=== PATIENT | female | born 1945 | race Caucasian/White ===

== ENCOUNTER 2019-07-20 10:19 | Outpatient (CLI) | payer MEDICARE, OTHER ==
--- NOTE | 2019-07-28 13:08 | MMO ---
Bilateral MAMMO Bilat Screen [facility]. CLINICAL HISTORY: Patient is 73 years old and is seen for screening. The patient has no family history of breast cancer. The patient has no personal history of cancer. VIEWS: The views performed were: bilateral craniocaudal with tomosynthesis and bilateral mediolateral oblique with tomosynthesis. FILMS COMPARED: The present examination has been compared to prior imaging studies performed at [facility] on 06/06/2016, 07/14/2017 and 07/15/2018. This study has been interpreted with the assistance of computer-aided detection. MAMMOGRAM FINDINGS: There are scattered fibroglandular densities. There are stable benign appearing calcifications seen in both breasts. There are no suspicious masses, suspicious calcifications, or new areas of architectural distortion. IMPRESSION: THERE IS NO MAMMOGRAPHIC EVIDENCE OF MALIGNANCY. A ROUTINE FOLLOW-UP MAMMOGRAM IN 1 YEAR IS RECOMMENDED. THE RESULTS OF THIS EXAM WERE SENT TO THE PATIENT. ACR BI-RADS Category 2 - Benign finding MAMMOGRAPHY NOTE: 1. A negative mammogram report should not delay a biopsy if a dominant of clinically suspicious mass is present. 2. Approximately 10% to 15% of breast cancers are not detected by mammography. 3. Adenosis and dense breasts may obscure an underlying neoplasm. Reported by: VENU COY MD Electonically Signed: [id number]
== END 2019-07-20 10:20 | disposition home or self-care (01) ==
LOC: BICMAMMO 10:19
PROVIDERS: ATTEND Obstetrics & Gynecology
DX: Z12.31 Encounter for screening mammogram for malignant neoplasm of breast (principal)
CPT/HCPCS: 77063; 77067

== ENCOUNTER 2020-09-05 11:06 | Outpatient (CLI) | payer MEDICARE ==
--- NOTE | 2020-09-05 11:42 | MMO ---
Bilateral MAMMO Bilat Screen [facility]. CLINICAL HISTORY: Patient is 74 years old and is seen for screening. The patient has no family history of breast cancer. The patient has no personal history of cancer. VIEWS: The views performed were: bilateral craniocaudal with tomosynthesis and bilateral mediolateral oblique with tomosynthesis. FILMS COMPARED: The present examination has been compared to prior imaging studies performed at [facility] on 07/20/2019, and at [facility] on 06/06/2016, 07/14/2017 and 07/15/2018. This study has been interpreted with the assistance of computer-aided detection. MAMMOGRAM FINDINGS: There are scattered fibroglandular densities. Benign calcifications are noted bilaterally. There are no suspicious masses, suspicious calcifications, or new areas of architectural distortion. IMPRESSION: THERE IS NO MAMMOGRAPHIC EVIDENCE OF MALIGNANCY. A ROUTINE FOLLOW-UP MAMMOGRAM IN 1 YEAR IS RECOMMENDED. THE RESULTS OF THIS EXAM WERE SENT TO THE PATIENT. ACR BI-RADS Category 2 - Benign finding MAMMOGRAPHY NOTE: 1. A negative mammogram report should not delay a biopsy if a dominant of clinically suspicious mass is present. 2. Approximately 10% to 15% of breast cancers are not detected by mammography. 3. Adenosis and dense breasts may obscure an underlying neoplasm. Reported by: ALHAJI MOONEY MD Electonically Signed: [id number]
== END 2020-09-05 11:07 | disposition home or self-care (01) ==
LOC: BICMAMMO 11:06
PROVIDERS: ATTEND Obstetrics & Gynecology
DX: Z12.31 Encounter for screening mammogram for malignant neoplasm of breast (principal)
CPT/HCPCS: 77063; 77067

== ENCOUNTER 2021-09-10 09:37 | Outpatient (CLI) | payer MEDICARE | END 2021-09-10 09:38 | disposition home or self-care (01) | LOC: BICMAMMO 09:37 | PROVIDERS: ATTEND Obstetrics & Gynecology | DX: Z12.31 Encounter for screening mammogram for malignant neoplasm of breast (principal) | CPT/HCPCS: 77063; 77067 ==

== ENCOUNTER 2021-10-09 10:10 | Outpatient (CLI) | payer MEDICARE | END 2021-10-09 10:11 | disposition home or self-care (01) | LOC: LABBT 10:10 | PROVIDERS: ATTEND Orthopaedic Surgery | DX: Z01.818 Encounter for other preprocedural examination (principal); M17.12 Unilateral primary osteoarthritis, left knee | CPT/HCPCS: 71046; 93005; 93010 ==

== ENCOUNTER 2021-10-14 05:49 | Observation (INO) | payer MEDICARE ==
[2021-10-08 13:45] VITALS: BMI 31.1
[2021-10-09 11:56] LABS: #Eosinphils 0.1 10x3/uL (0.0-0.5); #Monocytes 0.5 10x3/uL (0.0-1.1); #Neutrophils 3.4 10x3/uL (1.5-8.4); %Basophils 0.5 % (0.0-2.0); %Eosinophils 2.1 % (0.0-6.0); %Monocytes 7.8 % (0.0-10.0); %Neutrophils 59.3 % (40.0-75.0); Hemoglobin 13.9 g/dL (12.0-15.5); Mean Corpuscular HGB CONC 31.6 g/dL (32.0-36.0); Mean Corpuscular Hemoglobin 28.7 pg (27.0-33.0); Mean Corpuscular Volume 90.9 fl (81.6-98.3); Mean Platelet Volume 10.6 fl (7.4-10.4); Platelet Count 246 10x3/uL (150-450); RBC Distribution Width 13.5 % (11.5-14.5); Red Blood Cell (RBC) Count 4.84 10x6/uL (3.90-5.03); White Blood Cell (WBC) Count 5.8 10x3/uL (3.5-10.5)
[2021-10-09 12:08] LABS: Bilirubin Neg (Negative); Blood, Urine Negative (Negative); Clarity Clear (Clear); Glucose, Urine (Dipstick) Normal (Negative); Ketone, Urine Negative (Negative); Leukocyte 100 (Negative); Nitrite Negative (Negative); Protein, Urine (Dipstick) Negative (Neg-Trace); Urobilinogen Normal mg/dL (Less than 2)
[2021-10-09 12:09] LABS: Anion Gap 14 mmol/L (10-20); BUN (Urea Nitrogen) 21 mg/dL (9.8-20.1); Calc. Creatinine Clearance 0 mL/min (70-130); Calcium 9.8 mg/dL (7.8-10.44); Carbon Dioxide 27 mmol/L (23-31); Chloride 105 mmol/L (98-107); Glucose 90 mg/dL (83-110); Potassium 4.7 mmol/L (3.5-5.1); Sodium 141 mmol/L (136-145)
[2021-10-09 12:30] LABS: Prothrombin Time 10.6 sec (9.5-12.1)
[2021-10-09 21:33] LABS: SARS-CoV-2 PCR by NAA Not Detected (NotDetected)
[2021-10-14] MEDS ORDERED: Vancomycin 1 GM/200 ML BAG ONE (06:06)
[2021-10-14] MEDS ORDERED: Tranexamic Acid 1,000 MG/10 ML VIAL ONE ×2 (06:06→09:40)
[2021-10-14] MEDS ORDERED: Sodium Chloride 0.9% 100 ML ONE (06:07)
[2021-10-14] MEDS ORDERED: Lidocaine 1% (PF) 30 ML VIAL ONE (06:25)
[2021-10-14] MEDS ORDERED: Fentanyl 100 MCG/2 ML VIAL ONE (06:25)
[2021-10-14] MEDS ORDERED: Midazolam HCl 2 mg/2 ml Vial ONE (06:25)
[2021-10-14] MEDS ORDERED: Scopolamine 1.5 mg/72 hour Patch ONE (06:34)
[2021-10-14] MEDS ORDERED: Lidocaine 1% PF 5 ML VIAL ONE (06:50)
[2021-10-14] MEDS ORDERED: Ondansetron PF 4 MG/2 ML Vial ONE (06:50)
[2021-10-14] MEDS ORDERED: ePHEDrine 50 MG/ML VIAL ONE (06:50)
[2021-10-14] MEDS ORDERED: Ketorolac Tromethamine 30 MG/ML VIAL ONE ×2 (06:50→14:41)
[2021-10-14] MEDS ORDERED: Dexamethasone 20 MG/5 ML VIAL ONE (06:50)
[2021-10-14] MEDS ORDERED: PROPOFOL 200 MG/20 ML VIAL ONE (06:50)
[2021-10-14] MEDS ORDERED: Bupivacaine HCl 0.5%/Epinephrine 1:200,000/PF 30 ml Vial ONE (06:50)
[2021-10-14] MEDS ORDERED: Clindamycin/D5W 600 mg/50 ml Premix Bag ONE (07:16)
[2021-10-14] MEDS ORDERED: Zolpidem Tartrate 5 MG TAB PO PRN (07:30)
[2021-10-14] MEDS ORDERED: Ondansetron PF 4 MG/2 ML Vial IVP PRN ×2 (07:30→07:36)
[2021-10-14] MEDS ORDERED: traMADol HCl 50 MG TAB PO PRN ×3 (07:30→07:36)
[2021-10-14] MEDS ORDERED: HYDROcodone/Acetaminophen 10/325 mg Tablet PO PRN ×3 (07:30→07:36)
[2021-10-14] MEDS ORDERED: Promethazine HCl 25 MG/ML VIAL IM PRN ×3 (07:30→12:09)
[2021-10-14] MEDS ORDERED: Fentanyl 100 MCG/2 ML VIAL SLOW IVP PRN ×2 (07:30→07:36)
[2021-10-14] MEDS ORDERED: Ropivacaine 0.2% 550 ML 550 ML NERVE BLCK SCH (07:30)
[2021-10-14] MEDS ORDERED: Dexmedetomidine 200 MCG/2 ML VIAL ONE (07:35)
[2021-10-14] MEDS ORDERED: Acetaminophen 325 MG TAB PO PRN (07:36)
[2021-10-14] MEDS ORDERED: diphenhydrAMINE 25 MG CAP PO PRN (07:36)
[2021-10-14] MEDS ORDERED: Tranexamic Acid 1,000 MG in Sodium Chloride 0.9% 100 ML IVPB SCH (07:45)
[2021-10-14] MEDS ORDERED: Bupivacaine PF 0.5% 30 ML VIAL ONE (08:06)
[2021-10-14] MEDS ORDERED: Acetaminophen 500 MG TAB ONE (10:55)
[2021-10-14] MEDS ORDERED: Promethazine HCl 25 MG/ML VIAL ONE (11:05)
[2021-10-14] MEDS ORDERED: Morphine 4 MG/ML VIAL ONE (11:05)
[2021-10-14] MEDS ORDERED: Ondansetron HCl/PF 4 MG/2 ML Vial IVP PRN (12:09)
[2021-10-14] MEDS ORDERED: PACU-Morphine 4MG/ML VIAL SLOW IVP PRN (12:09)
[2021-10-14] MEDS ORDERED: Promethazine HCl 25 MG/ML VIAL IVPB PRN (12:09)
[2021-10-14] MEDS ORDERED: Morphine 4 MG/ML VIAL SLOW IVP PRN ×2 (12:24→12:29)
[2021-10-14] MEDS ORDERED: Acetaminophen 500 MG TAB PO PRN (12:30)
[2021-10-14] MEDS: Sodium Chloride 0.9% 1,000 ML IV SCH ×2 (13:00→18:24)
[2021-10-14] MEDS: Aspirin 81 mg Enteric Coated Tablet PO SCH ×2 (13:01→21:32)
[2021-10-14] MEDS ORDERED: Ketorolac Tromethamine 30 MG/ML VIAL IVP SCH (14:00)
[2021-10-14] MEDS ORDERED: Clindamycin/D5W 900 MG in Premix Bag 1 BAG IVPB SCH ×2 (14:00→23:59)
[2021-10-14] MEDS: Ketorolac Tromethamine 30 MG/ML VIAL IVP SCH ×2 (14:46→18:16)
[2021-10-14] MEDS ORDERED: Vancomycin 1 GM in Premix Bag 1 BAG IVPB SCH (20:00)
[2021-10-14] MEDS: Calcium Carbonate 600 MG TAB PO SCH (21:32)
[2021-10-14] MEDS: Cholecalciferol 1,000 UNITS (25 MCG) TAB PO SCH (21:37)
[2021-10-15] MEDS: Ketorolac Tromethamine 30 MG/ML VIAL IVP SCH ×4 (00:11→18:58)
[2021-10-15] MEDS: Zolpidem Tartrate 5 MG TAB PO PRN ×2 (00:49→21:01)
[2021-10-15] MEDS: Sodium Chloride 0.9% 1,000 ML IV SCH ×3 (06:08→21:02)
[2021-10-15 07:07] LABS: Mean Corpuscular HGB CONC 32.1 g/dL (32.0-36.0); Mean Corpuscular Hemoglobin 29.3 pg (27.0-31.0); Mean Corpuscular Volume 91.1 fL (78.0-98.0); Platelet Count 183 thou/uL (130-400); RBC Distribution Width 12.7 % (11.5-14.5); Red Blood Cell (RBC) Count 3.75 mill/uL (4.20-5.40); White Blood Cell (WBC) Count 7.8 thou/uL (4.8-10.8)
[2021-10-15] MEDS ORDERED: FLU VACC QS2021-22(65YR UP)/PF 240 MCG/0.7 ML SYRINGE IM ONE (09:00)
[2021-10-15] MEDS: Aspirin 81 mg Enteric Coated Tablet PO SCH ×2 (10:04→21:02)
[2021-10-15] MEDS: Senokot S 8.6-50 MG TAB PO SCH ×2 (10:04→21:01)
[2021-10-15] MEDS: Multivitamin W/ Minerals 1 TAB PO SCH (10:05)
[2021-10-15] MEDS: Ferrous Gluconate 324 MG TAB PO SCH ×2 (10:05→18:59)
[2021-10-15] MEDS: Calcium Carbonate 600 MG TAB PO SCH (21:01)
[2021-10-15] MEDS: Cholecalciferol 1,000 UNITS (25 MCG) TAB PO SCH (21:02)
[2021-10-16] MEDS: Ketorolac Tromethamine 30 MG/ML VIAL IVP SCH ×2 (00:58→06:16)
[2021-10-16 06:09] LABS: Mean Corpuscular HGB CONC 32.5 g/dL (32.0-36.0); Mean Corpuscular Volume 92.3 fL (78.0-98.0); Mean Platelet Volume 8.2 fL (7.4-10.4); Platelet Count 201 thou/uL (130-400); RBC Distribution Width 12.8 % (11.5-14.5); Red Blood Cell (RBC) Count 3.67 mill/uL (4.20-5.40)
[2021-10-16] MEDS: Ferrous Gluconate 324 MG TAB PO SCH ×2 (09:38→17:57)
[2021-10-16] MEDS: Aspirin 81 mg Enteric Coated Tablet PO SCH ×2 (09:38→20:22)
[2021-10-16] MEDS: Sodium Chloride 0.9% 1,000 ML IV SCH ×3 (09:38→23:30)
[2021-10-16] MEDS: Multivitamin W/ Minerals 1 TAB PO SCH (09:38)
[2021-10-16] MEDS: Senokot S 8.6-50 MG TAB PO SCH ×2 (09:40→20:21)
[2021-10-16] MEDS: Calcium Carbonate 600 MG TAB PO SCH (20:22)
[2021-10-16] MEDS: Cholecalciferol 1,000 UNITS (25 MCG) TAB PO SCH (20:23)
[2021-10-17 05:53] LABS: Hemoglobin 13.2 g/dL (12.0-16.0); Mean Corpuscular HGB CONC 31.1 g/dL (32.0-36.0); Mean Corpuscular Hemoglobin 28.8 pg (27.0-31.0); Mean Corpuscular Volume 92.7 fL (78.0-98.0); Mean Platelet Volume 7.9 fL (7.4-10.4); Platelet Count 231 thou/uL (130-400); RBC Distribution Width 12.7 % (11.5-14.5); Red Blood Cell (RBC) Count 4.59 mill/uL (4.20-5.40); White Blood Cell (WBC) Count 8.5 thou/uL (4.8-10.8)
[2021-10-17] MEDS: Ferrous Gluconate 324 MG TAB PO SCH (08:51)
[2021-10-17] MEDS: Senokot S 8.6-50 MG TAB PO SCH (08:51)
[2021-10-17] MEDS: Aspirin 81 mg Enteric Coated Tablet PO SCH (08:51)
[2021-10-17] MEDS: Multivitamin W/ Minerals 1 TAB PO SCH (08:52)
[2021-10-17 11:32] VITALS: BP 177/89; TEMP 98.7
== END 2021-10-17 15:05 | disposition home or self-care (01) ==
LOC: SDC 05:49 → SURG A 15:51 → INTOOBSV 15:51
PROVIDERS: ADMIT Orthopaedic Surgery; ATTEND Orthopaedic Surgery
PROC: 0SRD0J9 Replacement of Left Knee Joint with Synthetic Substitute, Cemented, Open Approach (ICD-10-PCS; principal; 2021-10-14)
PROC: 8E0YXBZ Computer Assisted Procedure of Lower Extremity (ICD-10-PCS; 2021-10-14)
PROC: 3E0T3BZ Introduction of Anesthetic Agent into Peripheral Nerves and Plexi, Percutaneous Approach (ICD-10-PCS; 2021-10-14)
DX: M17.12 Unilateral primary osteoarthritis, left knee (principal); Z88.0 Allergy status to penicillin; Z88.5 Allergy status to narcotic agent; Z88.6 Allergy status to analgesic agent; Z20.822 Contact with and (suspected) exposure to COVID-19
CPT/HCPCS: 20985; 27447; 64448; 80048; 81003; 85025; 85027 ×3; 85610; 86850; 86900; 86901; 87081; 97110 ×3; 97116 ×4; 97139 ×3; 97530 ×2; A4306; C1713; C1776; U0003; U0005; 36415; 96365; 96367; 96375; 96376; G0378; J1100; J1885; J2001; J2250; J2270; J2405; J2550; J2704; J2795; J3010; J3370; J3490; J7050; S0020

== ENCOUNTER 2022-09-12 10:16 | Outpatient (CLI) | payer MEDICARE | END 2022-09-12 10:17 | disposition home or self-care (01) | LOC: BICMAMMO 10:16 | PROVIDERS: ATTEND Family Medicine | DX: Z12.31 Encounter for screening mammogram for malignant neoplasm of breast (principal) | CPT/HCPCS: 77063; 77067 ==